=== PATIENT | female | born 1955 | race Caucasian/White ===

== ENCOUNTER → 2018-01-10 09:45 | Outpatient (CLI) | payer MEDICARE, SELFPAY ==
--- NOTE | 2018-01-10 | DI.MG.S_ITS ---
BILATERAL DIGITAL SCREENING MAMMOGRAM 3D/2D WITH CAD WITH AUGMENTATION: 01/10/2018 Comparison is made to exam dated: 11/08/2006 mammogram - [facility]. There are scattered fibroglandular elements in both breasts. Current study was also evaluated with a Computer Aided Detection (CAD) system. Bilateral breast implants are intact. No significant masses, calcifications, or other findings are seen in either breast. There has been no significant interval change. IMPRESSION: NEGATIVE There is no mammographic evidence of malignancy. A 1 year screening mammogram is recommended. This exam was interpreted at Station ID: [id number]. NOTE: For mammograms, a report in lay terms will be sent to the patient. Approximately 15% of breast malignancies will not be visualized mammographically. In the management of a palpable breast mass, a negative mammogram must not discourage biopsy of a clinically suspicious lesion. Electronically Signed By: Meet fontenot/loyda:01/10/2018 16:52:59 letter sent: Normal Exam ACR BI-RADS Category 1: Negative 3341F
== END ==
PROVIDERS: PCP Student in an Organized Health Care Education/Training Program; Visit Provider Family Medicine
DX: Z12.31 Encounter for screening mammogram for malignant neoplasm of breast (principal)
CPT/HCPCS: 77063; 77067

== ENCOUNTER → 2018-11-14 12:05 | Outpatient (CLI) | payer MEDICARE, SELFPAY ==
[2018-11-16 17:34] LABS: Fecal Immunochemical Test NOT DETECTED (NOT DETECTED)
== END ==
PROVIDERS: PCP Student in an Organized Health Care Education/Training Program; Visit Provider Student in an Organized Health Care Education/Training Program
DX: Z12.11 Encounter for screening for malignant neoplasm of colon (principal)
CPT/HCPCS: 82274

== ENCOUNTER → 2018-12-12 08:25 | Outpatient (CLI) | payer MEDICARE, SELFPAY ==
[2018-12-12 10:10] LABS: Blood Urea Nitrogen 9 mg/dL (7-17); Calcium 10.2 mg/dL (8.4-10.2); Carbon Dioxide 30 mmol/L (22-32); Chloride 100 mmol/L (98-107); Cholesterol 198 mg/dL (140-199); Estimated Glomerular Filt Rate > 60.0 mL/min (>60); Glucose 90 mg/dL (80-110); HDL Cholesterol 51 mg/dL (40-60); HEMOLYSIS < 15 (0-50); LDL Cholesterol Calculated 120 mg/dL (<100); Sodium 139 mmol/L (137-145); Triglycerides 135 mg/dL (35-150)
== END ==
PROVIDERS: PCP Student in an Organized Health Care Education/Training Program; Visit Provider Student in an Organized Health Care Education/Training Program
DX: I10 Essential (primary) hypertension (principal); E78.00 Pure hypercholesterolemia, unspecified
CPT/HCPCS: 36415; 80048; 80061

== ENCOUNTER → 2019-11-21 15:28 | Outpatient (CLI) | payer MEDICARE, SELFPAY ==
--- NOTE | 2019-11-21 16:05 | DI.MG.S_ITS ---
Patient Name: ELENA SAMANIEGO date: 1955 Sex: F Attending Physician: Lucy Indications: Date: 11/21/2019 15:32 At the request of: ANGEL BOUCHER Procedure: MM screening mammo implant BI BILATERAL DIGITAL SCREENING MAMMOGRAM 3D/2D WITH CAD WITH AUGMENTATION: 11/21/2019 CLINICAL: Routine screening. Comparison is made to exams dated: 01/10/2018 mammogram - [facility] and 11/08/[address] - [facility]. There are scattered fibroglandular elements in both breasts. Current study was also evaluated with a Computer Aided Detection (CAD) system. No significant masses, calcifications, or other findings are seen in either breast. IMPRESSION: INCOMPLETE: NEEDS ADDITIONAL IMAGING EVALUATION The left implant is intact and has a stable appearance. The right implant has calcifications of the capsule and concern for rupture of silicone breast implant. A breast MRI is recommended for further evaluation of the right implant if there are also clinical concerns for implant rupture. Otherwise, no mammographic evidence for malignancy. This exam was interpreted at Station ID: [id number]. NOTE: For mammograms, a report in lay terms will be sent to the patient. Approximately 15% of breast malignancies will not be visualized mammographically. In the management of a palpable breast mass, a negative mammogram must not discourage biopsy of a clinically suspicious lesion. Electronically Signed By: Mak Ordoñez M.D. aty/:11/21/2019 17:27:56 Continued Report - Page 2 of 2 Patient Name: ELENA SAMANIEGO date: 1955 Sex: F Attending Physician: Lucy Indications: Date: 11/21/2019 15:32 At the request of: ANGEL BOUCHER Procedure: MM screening mammo implant BI letter sent: Need MRI ACR BI-RADS Category 0: Incomplete 3340F
== END ==
PROVIDERS: PCP Student in an Organized Health Care Education/Training Program; Referring Provider Student in an Organized Health Care Education/Training Program; Visit Provider Student in an Organized Health Care Education/Training Program
DX: Z12.31 Encounter for screening mammogram for malignant neoplasm of breast (principal)
CPT/HCPCS: 77063; 77067

== ENCOUNTER → 2019-12-03 13:26 | Outpatient (ROUT) | payer MEDICARE, SELFPAY ==
[2019-12-04 13:36] LABS: Fecal Immunochemical Test Negative (Negative)
== END ==
PROVIDERS: PCP Student in an Organized Health Care Education/Training Program; Visit Provider Student in an Organized Health Care Education/Training Program
DX: Z12.11 Encounter for screening for malignant neoplasm of colon (principal)
CPT/HCPCS: 82274

== ENCOUNTER → 2020-09-17 09:58 | Outpatient (CLI) | payer MEDICARE, SELFPAY ==
--- NOTE | 2020-09-17 | DI.MG.S_ITS ---
BILATERAL DIGITAL SCREENING MAMMOGRAM 3D/2D WITH CAD WITH AUGMENTATION: 09/17/2020 CLINICAL: Routine screening. Comparison is made to exams dated: 11/21/2019 mammogram, 01/10/2018 mammogram - [facility], and 11/08/2006 mammogram - [facility]. There are scattered fibroglandular elements in both breasts. Current study was also evaluated with a Computer Aided Detection (CAD) system. No significant masses, calcifications, or other findings are seen in either breast. IMPRESSION: BENIGN The left implant has a stable appearance with stable contour and calcifications of the capsule. The right implant has calcification of the capsule. The right implant again shows evidence for extracapsular rupture. Consider further evaluation with breast MRI if there are clinical concerns. There is no mammographic evidence of malignancy. A 1 year screening mammogram is recommended. This exam was interpreted at Station ID: [id number]. NOTE: For mammograms, a report in lay terms will be sent to the patient. Approximately 15% of breast malignancies will not be visualized mammographically. In the management of a palpable breast mass, a negative mammogram must not discourage biopsy of a clinically suspicious lesion. Electronically Signed By: Mak Ordoñez M.D. aty/:09/17/2020 10:44:09 letter sent: Normal Exam ACR BI-RADS Category 2: Benign Finding(s) 3342F
--- NOTE | 2020-09-17 10:00 | DI.MRI.S_ITS ---
BREAST MRI OF BOTH BREASTS: 09/17/2020 CLINICAL: Leakage of breast prostehesis and implant. INDICATIONS: Possible right breast implant rupture. TECHNIQUE: The patient was placed prone in a dedicated breast imaging coil. Axial bilateral STIR, axial and sagittal STIR with water saturation (silicone selective), sagittal T2 fast spin echo with fat saturation, and coronal T2 fast spin echo without fat saturation sequences were acquired. COMPARISON: None. FINDINGS: Image quality: Excellent. Right breast: The silicone right breast implant is ruptured with multiple large lobular areas of extracapsular silicone, primarily superior to the breast implant. The right breast demonstrates no abnormal focus or mass. No axillary or internal mammary chain adenopathy. Left breast: The silicone left breast implant is ruptured with extravasation of silicone outside of the fibrous capsule medially. The left breast demonstrates no abnormal focus or mass. No axillary or internal mammary chain adenopathy. IMPRESSION: BENIGN Bilateral extracapsular silicone breast implant rupture. This exam was interpreted at Station ID: [id number]. Electronically Signed By: Iván Kahn acr/:09/17/2020 12:33:07 Entry: - 09/18/2020 07:01:34 ACR BI-RADS Category 2: Benign Finding(s) 3342F
== END ==
PROVIDERS: PCP Student in an Organized Health Care Education/Training Program; Referring Provider Student in an Organized Health Care Education/Training Program; Visit Provider Student in an Organized Health Care Education/Training Program
DX: Z12.31 Encounter for screening mammogram for malignant neoplasm of breast (principal); T85.43XA Leakage of breast prosthesis and implant, initial encounter
CPT/HCPCS: 77063; 77067; 77047

== ENCOUNTER 2021-01-19 13:25 | Inpatient (IN) | payer MEDICARE, MEDICAID, SELFPAY ==
[2021-01-19] VITALS (11 sets, daily range): BP systolic 171–190; BP diastolic 82–111; PULSE 76–99; RESP 16–24; TEMP 36.4–38.7; O2SAT 93–96; BMI 21.6
[2021-01-19 13:56] LABS: Add Manual Diff / Slide Review NO; Basophils Absolute Auto 0 /uL (0-100); Basophils Percent Auto 0.6 % (0-2); Eosinophils Absolute Auto 0 /uL (0-450); Hematocrit 44.1 % (36-46); Hemoglobin 15.5 g/dL (12.0-16.0); Lymphocytes Absolute Auto 800 /uL (1100-4500); Lymphocytes Percent Auto 10.2 % (25-40); Mean Corpuscular Hemoglobin 33.6 PG (26-34); Mean Corpuscular Volume 95.8 fL (80-100); Monocytes Absolute Auto 600 /uL (0-900); Monocytes Percent Auto 8.1 % (3-14); Neutrophils Absolute Auto 6000 /uL (1500-7000); Neutrophils Percent Auto 81.1 % (50-75); Platelet Count 258 X10^3/uL (150-400); Red Blood Cell Count 4.61 X10^6/uL (4.0-5.2); Red Cell Distribution Width 16.2 % (11.6-14.8); White Blood Cell Count 7.4 X10^3/uL (4.5-11.0)
--- NOTE | 2021-01-19 13:59 | ED.ALCOHOL ---
HPI - Alcohol General Chief Complaint: Toxicology Problem Stated Complaint: Needs medical detox- alcohol/opiates Time Seen by Provider: 01/19/21 13:49 Source: patient Mode of arrival: Ambulatory History of Present Illness HPI narrative: The patient is here due to alcohol intoxication. She underwent detox 11 years ago, there was a prolonged hospital associated with the events that time. She has been sober for 11 years, she started drinking again about 2 months ago. She is drinking about 1/5 of alcohol daily. She is also taking Percocet for bilateral knee pain prescribed by her PCM. She is providing her medical history with assistance of her sister. She denies headache, sore throat fever. She denies chest pain cough or dyspnea. She has been vomiting. She has had no hematemesis. She has no history of chronic GI problems. She has no history of liver disease or pancreatitis. She has no back pain. She has no history of GI bleeding. She has no obvious history of seizures. She is on medications for hypertension, she is compliant with medications. She is eating. She has no particular reason why she started drinking again. Related Data Previous Rx's Medication Instructions Recorded amlodipine 5 mg tablet 5 mg PO BID #180 tab 12/17/20 hydrochlorothiazide 25 mg tablet 25 mg PO DAILY #90 tab 12/17/20 lisinopril 40 mg tablet (Zestril) 40 mg PO QDAY #90 tab 12/17/20 oxycodone-acetaminophen 5 mg-325 1 tab PO TIDP PRN #90 tab 01/15/21 mg tablet lorazepam 0.5 mg tablet (Ativan) 0.5 mg PO BID PRN #42 tab 01/18/21 venlafaxine 75 mg capsule,extended 75 mg PO DAILY #90 cap 01/18/21 release 24 hr Allergies Allergy/AdvReac Type Severity Reaction Status Date / Time No Known Drug Allergies Allergy Unverified 08/12/20 14:07 Review of Systems Constitutional Constitutional: Reports as per HPI, Denies chills, Denies fatigue, Denies fever(s), Denies headache(s) and Denies weakness Eyes Eyes: Denies change in vision ENT Ears, Nose, Mouth, and Throat: Denies headache(s), Denies nose pain and Denies sore throat Cardiovascular Cardiovascular: Denies chest pain, Denies syncope, Denies rapid heart rate, Denies pedal edema and Denies dyspnea Respiratory Respiratory: Denies chest congestion, Denies cough and Denies dyspnea Gastrointestinal Gastrointestinal: Denies change in stool character, Denies constipation, Denies diarrhea, Reports nausea and Reports vomiting Genitourinary Genitourinary: Denies dysuria Musculoskeletal Musculoskeletal: Denies arthralgias, Denies back pain and Denies numbness Integumentary/Breasts Skin/Breast: Denies rash and Denies sores Neurologic Neurologic: Denies confusion, Denies syncope, Denies headache(s), Denies memory loss, Denies numbness and Denies weakness Psychiatric Psychiatric: Reports anxiety, Denies confusion and Denies memory loss Endocrine Endocrine: Denies fatigue Hematologic/Lymphatic On Anticoagulants: No Patient History Medical History Agoraphobia (Unknown) Allergic rhinitis (Unknown) Allergic rhinitis due to pollen (06/01/15) Anxiety (Unknown) Chronic pain of left knee (06/19/17) Chronic sinusitis (Unknown) Depression (03/19/15) Depression (Unknown) Essential hypertension (03/19/15) GERD (gastroesophageal reflux disease) (Unknown) Herpes (Unknown) History of ETOH abuse (~2011) Hypertension (Unknown) Knee pain, bilateral (Unknown) Neck pain (Unknown) Osteoarthritis (Unknown) PTSD (post-traumatic stress disorder) (Unknown) Pure hypercholesterolemia (03/24/17) Spinal stenosis (Unknown) Tension headache (Unknown) Uncomplicated opioid dependence Surgical History H/O LEEP (Unknown) History of repair of hiatal hernia (Unknown) Hx of bilateral breast implants (Unknown) Hx of cervical discectomy (12/2013) Hx of section (Unknown) Family History Sister Cancer Grandmother Diabetes mellitus Social History Smoking Status: Current every day smoker Smoking Status: Current every day smoker tobacco type: cigarettes alcohol intake frequency: 3 or more drinks per day Alcohol type: hard liquor Substance Use Type: opiates and prescription drug Exam Initial Vital Signs Initial Vital Signs: Vital Signs Temperature 97.5 F L 01/19/21 13:30 Pulse Rate 96 H 01/19/21 13:30 Respiratory Rate 24 01/19/21 13:30 Blood Pressure 179/111 H 01/19/21 13:30 Pulse Oximetry 95 01/19/21 13:30 Const General: cooperative, No in distress, anxious and intoxicated appearing Nutritional Appearance: average body habitus Limitations: mental status not altered [facility] Head: normal to inspection, normocephalic and atraumatic Face and sinus: normal facial exam and sinuses tender Mouth: oral mucosae normal Throat: posterior oropharynx normal Eyes General: appearance normal, both eyes and all related structures Conjunctivae: conjunctivae normal Sclera: sclerae normal Cornea: corneas normal Pupils: PERRL EOM: EOM intact bilaterally and No nystagmus Neck Neck: supple, No tender and No JVD Thyroid: thyroid normal Chest Chest: No tenderness Resp Auscultation: clear to auscultation bilaterally Cardio Rate: regular rate Rhythm: regular rhythm Heart Sounds: S1 normal, S2 normal, no murmurs and no rubs GI Other: Upper abdominal tenderness. No distension. No guarding rebound normal bowel sounds. No masses. Back/Spine/Pelvis Back: No CVA tenderness Skin General: no rashes or lesions noted Neuro General: patient alert, patient awake, patient oriented x3 and no focal motor deficits Cranial Nerves: No nystagmus Cognition: normal cognition Gait: normal gait Motor: muscle tone normal throughout Sensory Exam: no sensory deficits noted Extrem General: normal to inspection, full ROM, no pedal edema and no calf tenderness Psych Speech and Movement: restless and slowed movement Mood: anxious mood Thought Content: suicidality Course Course Course Narrative: The patient has received IV fluids. Her elevated alcohol is noted. She developed tremor. Ativan was given. The case was discussed with the hospitalist, . She will be admitted for medical detox. Orders Ordered: ED Orders 01/19/21 13:48 Acetaminophen Stat Complete Blood Count AUTO DIFF Stat Comprehensive Metabolic Panel Stat Ethanol (ETOH) Stat Free T4, Direct Thyroxine Stat Salicylate Stat Thyroid Stimulating Hormone Stat 01/19/21 14:37 Consult to DUMP TRUCK DRIVER - Transformation Coach Stat 01/19/21 15:11 COVID19 - ADMIT (SOLUTION MIXER swab/PCR) Stat 01/19/21 16:04 Urinalysis and Microscopic Stat Urine Drug Screen, Rapid Stat Acetaminophen (Acetaminophen 325 Mg Tablet) 650 mg PO Q6HR PRN PRN Reason: Fever/Mild Pain (1-3) Enoxaparin Sodium (Enoxaparin 40 Mg/0.4 Ml Syringe) 40 mg SUBCUT DAILY [facility] Folic Acid (Folic Acid 1 Mg Tablet) 1 mg PO DAILY [facility] Thiamine HCl 100 mg/ Sodium (Chloride) 50 mls @ 200 mls/hr IV DAILY [facility] Lorazepam (Lorazepam 2 Mg/Ml Inj) 0 mg IV CIWAPRN PRN; Protocol PRN Reason: Alcohol Withdrawal Lorazepam (Lorazepam 1 Mg Tablet) 0 mg PO CIWAPRN PRN; Protocol PRN Reason: Alcohol Withdrawal Multivitamins (Multivitamin 1 Tablet) 1 tab PO DAILY [facility] Ondansetron HCl (Ondansetron 4 Mg/2 Ml Inj) 4 mg IV Q8HR PRN PRN Reason: Nausea And Vomiting Discontinued Medications Sodium Chloride (Normal Saline 0.9%) 1,000 mls @ 1,000 mls/hr IV BOLUS ONE Stop: 01/19/21 14:35 Last Infusion: 01/19/21 15:56 Dose: 0 mls/hr Documented by: Admin: 01/19/21 14:05 Dose: 1,000 mls/hr Documented by: EMANUEL Sodium Chloride (Normal Saline 0.9%) 1,000 mls @ 1,000 mls/hr IV BOLUS ONE Stop: 01/19/21 14:57 Last Infusion: 01/19/21 17:44 Dose: 0 mls/hr Documented by: Admin: 01/19/21 15:55 Dose: 1,000 mls/hr Documented by: EMANUEL POTASSIUM CHLORIDE IN WATER (Potassium Cl 10 Meq/100 Ml Shirley) 10 meq in 100 mls @ 100 mls/hr IV Q1H FELIZ Stop: 01/19/21 17:44 Last Infusion: 01/19/21 17:45 Dose: 0 mls/hr Documented by: Admin: 01/19/21 17:20 Dose: 100 mls/hr Documented by: Infusion: 01/19/21 17:19 Dose: 0 mls/hr Documented by: Admin: 01/19/21 15:56 Dose: 100 mls/hr Documented by: EMANUEL Lorazepam (Lorazepam 2 Mg/Ml Inj) 1 mg IV NOW ONE Stop: 01/19/21 15:00 Last Admin: 01/19/21 15:04 Dose: 1 mg Documented by: JANINE Lorazepam (Lorazepam 2 Mg/Ml Inj) 2 mg IV NOW ONE Stop: 01/19/21 16:59 Last Admin: 01/19/21 17:20 Dose: 2 mg Documented by: EMANUEL Ondansetron HCl (Ondansetron 4 Mg/2 Ml Inj) 4 mg IV NOW ONE Stop: 01/19/21 13:37 Last Admin: 01/19/21 14:05 Dose: 4 mg Documented by: EMANUEL Vital Signs Vital signs: Vital Signs - 8 hr 01/19/21 13:30 01/19/21 14:04 01/19/21 14:30 Temperature 97.5 F L Pulse Rate 96 H 81 77 Respiratory Rate 24 18 18 Blood Pressure 179/111 H 171/82 H Pulse Oximetry 95 93 95 01/19/21 15:00 01/19/21 15:30 Temperature Pulse Rate 85 80 Respiratory Rate 23 21 Blood Pressure 177/82 H 185/94 H Pulse Oximetry 96 95 MDM - Alcohol Lab Data Result diagrams: 01/19/21 13:48 01/19/21 13:48 Labs: Lab Results 01/19/21 01/19/21 01/19/21 Range/Units 13:48 13:48 13:48 WBC 7.4 (4.5-11.0) X10^3/uL RBC 4.61 (4.0-5.2) X10^6/uL Hgb 15.5 (12.0-16.0) g/dL Hct 44.1 (36-46) % MCV 95.8 (80-100) fL MCH 33.6 (26-34) PG MCHC 35.0 (30-36) % RDW 16.2 H (11.6-14.8) % Plt Count 258 (150-400) X10^3/uL Neut % (Auto) 81.1 H (50-75) % Lymph % (Auto) 10.2 L (25-40) % [place] % (Auto) 8.1 (3-14) % Eos % (Auto) 0.0 L (2-4) % Baso % (Auto) 0.6 (0-2) % Neut # (Auto) 6000 (6203-7059) /uL Lymph # (Auto) 800 L (7962-5036) /uL [place] # (Auto) 600 (0-900) /uL Eos # (Auto) 0 (0-450) /uL Baso # (Auto) 0 (0-100) /uL Sodium 133 L (137-145) mmol/L Potassium 3.0 L (3.4-5.1) mmol/L Chloride 93 L (98-107) mmol/L Carbon Dioxide 25 (22-32) mmol/L BUN 8 (7-17) mg/dL Creatinine 0.45 L (0.52-1.04) mg/dL Estimated GFR > 60.0 (>60) mL/min BUN/Creatinine Ratio 17.8 (6-22) Glucose 108 (80-110) mg/dL Calcium 9.0 (8.4-10.2) mg/dL Total Bilirubin 1.1 (0.2-1.3) mg/dL AST 78 H (14-36) IU/L ALT 27 (<35) IU/L Alkaline Phosphatase 104 (38-126) U/L Total Protein 7.4 (6.3-8.2) g/dL Albumin 4.5 (3.5-5.0) g/dL Globulin 2.9 (1.7-4.1) g/dL Albumin/Globulin Ratio 1.6 (1.0-2.8) TSH 0.151 L (0.47-4.68) uIU/mL Free T4 0.73 L (0.78-2.19) ng/dL Salicylates < 1.0 (<20) mg/dL Acetaminophen 24 (10-30) ug/mL Ethyl Alcohol 221 H ( - 10) mg/dL SARS-CoV-2 (PCR) (Negative) 01/19/21 Range/Units 15:11 WBC (4.5-11.0) X10^3/uL RBC (4.0-5.2) X10^6/uL Hgb (12.0-16.0) g/dL Hct (36-46) % MCV (80-100) fL MCH (26-34) PG MCHC (30-36) % RDW (11.6-14.8) % Plt Count (150-400) X10^3/uL Neut % (Auto) (50-75) % Lymph % (Auto) (25-40) % [place] % (Auto) (3-14) % Eos % (Auto) (2-4) % Baso % (Auto) (0-2) % Neut # (Auto) (9077-1362) /uL Lymph # (Auto) (3579-5479) /uL [place] # (Auto) (0-900) /uL Eos # (Auto) (0-450) /uL Baso # (Auto) (0-100) /uL Sodium (137-145) mmol/L Potassium (3.4-5.1) mmol/L Chloride (98-107) mmol/L Carbon Dioxide (22-32) mmol/L BUN (7-17) mg/dL Creatinine (0.52-1.04) mg/dL Estimated GFR (>60) mL/min BUN/Creatinine Ratio (6-22) Glucose (80-110) mg/dL Calcium (8.4-10.2) mg/dL Total Bilirubin (0.2-1.3) mg/dL AST (14-36) IU/L ALT (<35) IU/L Alkaline Phosphatase (38-126) U/L Total Protein (6.3-8.2) g/dL Albumin (3.5-5.0) g/dL Globulin (1.7-4.1) g/dL Albumin/Globulin Ratio (1.0-2.8) TSH (0.47-4.68) uIU/mL Free T4 (0.78-2.19) ng/dL Salicylates (<20) mg/dL Acetaminophen (10-30) ug/mL Ethyl Alcohol ( - 10) mg/dL SARS-CoV-2 (PCR) Negative (Negative) Critical Care Time Critical Care Time Critical Care Time: Yes Total Critical Care Time: 30 Attestation: Critical care time included the initial assessment of the patient. Time included review of past medical records, labs, and EKG data. Medical decisions were made. The situation was discussed with the patient as well as the hospitalist. Discharge Plan Departure Patient Disposition: Admitted As Inpatient Clinical Impression: Alcohol use disorder, severe, dependence, Opioid dependence Admit Date/Time: 01/19/21 15:53 Admit Provider: Martin Watts
[2021-01-19] MEDS: SODIUM CHLORIDE 0.9% 1,000 ML 1000 ML IV ×2 (14:05→15:55)
[2021-01-19] MEDS: ONDANSETRON 4 MG/2 ML INJ IV (14:05)
[2021-01-19 14:08] LABS: Acetaminophen 24 ug/mL (10-30); Alanine Aminotransferase 27 IU/L (<35); Albumin 4.5 g/dL (3.5-5.0); Albumin Globulin Ratio 1.6 (1.0-2.8); Alkaline Phosphatase 104 U/L (38-126); Aspartate Aminotransferase 78 IU/L (14-36); BUN Creatinine Ratio 17.8 (6-22); Bilirubin Total 1.1 mg/dL (0.2-1.3); Blood Urea Nitrogen 8 mg/dL (7-17); Carbon Dioxide 25 mmol/L (22-32); Chloride 93 mmol/L (98-107); Estimated Glomerular Filt Rate > 60.0 mL/min (>60); Ethanol (ETOH) 221 mg/dL; Globulin 2.9 g/dL (1.7-4.1); Glucose 108 mg/dL (80-110); HEMOLYSIS 31 (0-50); Salicylate < 1.0 mg/dL (<20); Sodium 133 mmol/L (137-145); Total Protein 7.4 g/dL (6.3-8.2)
[2021-01-19 14:31] LABS: Free T4, Direct Thyroxine 0.73 ng/dL (0.78-2.19)
[2021-01-19 14:45] LABS: Thyroid Stimulating Hormone 0.151 uIU/mL (0.47-4.68)
[2021-01-19] MEDS: LORazepam 2 MG/ML INJ 1 MG IV (15:04)
[2021-01-19] MEDS: POTASSIUM CHLORIDE IN WATER 10 MEQ/100 ML PIGGYBACK 100 MEQ IV ×2 (15:56→17:20)
[2021-01-19 16:14] LABS: COVID19 - ADMIT (NP swab/PCR) Negative (Negative)
[2021-01-19 16:18] LABS: Appearance Urine UA CLEAR; Bilirubin Urine UA NEGATIVE (NEGATIVE); Color Urine UA YELLOW; Glucose Urine UA NEGATIVE (Negative); Ketones Urine UA TRACE (NEGATIVE); Leukocyte Esterase Urine UA NEGATIVE (NEGATIVE); Nitrite Urine UA NEGATIVE (Negative); Occult Blood Urine UA 3+ (Negative); Protein Urine UA 2+ (Negative); Urobilinogen Urine UA 0.2 E.U./dL (0.2)
[2021-01-19 16:20] LABS: pH Urine UA 7.5 (4.5-8.0)
[2021-01-19 16:22] LABS: UR Morphine/Opiate cutoff 300 Negative (Negative); Ur Creatinine Normal (Normal); Ur Specific Gravity Normal (Normal); Urine Amphetamines Negative (Negative); Urine Barbiturates Negative (Negative); Urine Benzodiazepines Negative (Negative); Urine Cocaine Negative (Negative); Urine MDMA Negative (Negative); Urine Methadone Negative (Negative); Urine Methamphetamines Negative (Negative); Urine Oxycodone Positive (Negative); Urine Phencyclidine Negative (Negative); Urine Tetrahydrocannabinol Negative (Negative); Urine Tricyclic Antidepressant Negative (Negative); Urine pH Normal (Normal)
--- NOTE | 2021-01-19 16:34 | CM.SWNOTE ---
BULB GROWER Assessment BULB GROWER - Speeder Hand Assessment ) BULB GROWER/Speeder Hand Assessment Time Spent with Patient Start date 01/19/21 Visit Start Time 15:40 End date 01/19/21 Visit End Time 15:50 Total time Care Management spent on 10 patient visit-in minutes Substance Abuse Screening Include Onset, Duration, Intensity Presenting Problem Patient presents to the ED with concern for her recent ETOH relapse. Patient only endorses ETOH relapse to BULB GROWER but endorses Opiate detox to RN during triage. Precipitating Event(s) Patient denies any triggers. Patient was clean and sober for 11 years and endorses recent relapse. Patient Strengths Patient is seeking detox. Current Behavioral Health Provider(s) None reported Include Facility, Provider, Ph. # Family Hx of Behavioral Abuse None reported Rehab Facilities? ((Date(s), Location(s) Patient endorses hx of ) inpatient/detox at [facility] 11 years ago. History of Withdrawal? Seizures? Patient endorses withdrawals but falls asleep and does not answer BULB GROWER's questions. Nurse endorses she recently was provided an Ativan. RN endorses that patient's CIWA withdrawal symptoms are anxiety, itching, mild auditory and visual disturbances, slight agitation , and moderate muscle tremors. Longest Period of Sobriety 11 years Psychosocial information & Support Patient is 66 y/o female who Systems resides in [place], [place]. Patient endorses her friends Hayde and daughter as supports that live locally. School/Work None reported Legal Concerns Legal Matters - Outstanding Issues None reported Mental Status Orientation (Person/Place/Time) A/Ox4 Stated Mood tired Affect (Congruent with Mood?) Flat, congruent with mood Thought Content - Specify/Describe None reported Obsessions, Delusions, Hallucinations Thought Processes (Mwhncms-Skjliljx-Kjhj logical Ecfcwqwc-Umvntsju-Tcigwwbepc- Izmurzqngjcxwi-Ndvfoct-Uwxsfqhcinuj- Thought Blocking) Speech (Jowrab-Zkot-Cooauwe-Rapid-Soft- slow, soft Loud-Pressured) Motor (Yxfegj-Yweotzkup-Vioj-Other) slow, patient resting. Not formally assessed Insight (Pswk-Tqdp-Fdak/Limited) fair/limited Judgement (Ledn-Rdst-Qskm/Limited) fair/limited Impulse Control (Adequate-Impaired) adequate Memory (Dppokbfah-Bgcuus-Ydpbte, intact, not formally assessed Impaired-Intact) Concentration (Intact-Impaired) fairly intact Attention (Intact-Impaired) fairly intact, patient falling asleep after Ativan effects impact patient. Behavior (Appropriate-Inappropriate) appropriate Additional Comment Patient is calm and communicative. Risk Assessment Suicidal Ideation (Plan) No Homicidal Ideation (Plan) No Comment None reported. Patient denies HI and SI in triage. Intervention Intervention BULB GROWER receives consult and enters room to meet with patient. Patient endorses that she is seeking detox. Patient endorses that she relapsed after 11 years of sobriety. Patient endorses she has been drinking a pint of vodka a day . Patient denies hx of AA meetings, [facility] outpatient or [facility] outpatient engagement. Patient does not endorses interest in outpatient providers at this time. Patient states one step at a time. At this time patient was not able to communicate with patient regarding planning for the future in regards to addressing ETOH use. It is the opinion of this BULB GROWER that patient would benefit from detox to address patient 's recent detox. Per aerospace engineer officer armament and ED provider Dr. Alvarado patient is to be admitted for medical ETOH detox and decreased Sodium levels. Plan RA Plan Patient to be admitted to acute care, DCP to f/u with patient regarding DCP for outpatient follow up. EVERETT Cartwright
[2021-01-19 16:36] LABS: Bacteria Urine Few (2-10); Culture Indicated Urine Cult Not Indicated; RBC Urine 10-30/HPF (0-5/HPF); Squamous Epithelial Cell Urine 1-5 /HPF (0-5/HPF); WBC Urine None Seen (0-5/HPF)
[2021-01-19] MEDS: LORazepam 2 MG/ML INJ IV ×4 (17:20→22:48)
--- NOTE | 2021-01-19 18:56 | P.HP_ITS ---
History of Present Illness History of Present Illness Date Patient Seen: 01/19/21 Time Patient Seen: 17:00 Chief complaint: Needs medical detox- alcohol/opiates Narrative: Ms. Pineda is a 66W with PMH alcohol abuse, anxiety, HTN, chronic pain who comes in for EtOH detox. She underwent detox 11 years ago, and says she has been sober since. For the last two months she has been drink 1/5 of hard alcohol daily. She also takes percocet for pain. She had her last drink earlier today, she has been vomiting, anxious, tremulous. She had no blood in vomit. No history of seizures. In the ED workup was done, vitals notable for heart rate in 90s, respiratory rate in 20s, blood pressure 170s/110s. Labs notable for normal CBC, Na 133, K 3.0, creatinine 0.45, AST 78. EtOH 221. She [facility] and admitted for further treatment. Patient History Medical History Agoraphobia (Unknown) Allergic rhinitis (Unknown) Allergic rhinitis due to pollen (06/01/15) Anxiety (Unknown) Chronic pain of left knee (06/19/17) Chronic sinusitis (Unknown) Depression (03/19/15) Depression (Unknown) Essential hypertension (03/19/15) GERD (gastroesophageal reflux disease) (Unknown) Herpes (Unknown) History of ETOH abuse (~2011) Hypertension (Unknown) Knee pain, bilateral (Unknown) Neck pain (Unknown) Osteoarthritis (Unknown) PTSD (post-traumatic stress disorder) (Unknown) Pure hypercholesterolemia (03/24/17) Spinal stenosis (Unknown) Tension headache (Unknown) Uncomplicated opioid dependence Surgical History H/O LEEP (Unknown) History of repair of hiatal hernia (Unknown) Hx of bilateral breast implants (Unknown) Hx of cervical discectomy (12/2013) Hx of section (Unknown) Family & Social History Family History Sister Cancer Grandmother Diabetes mellitus Social History: household members friend(s) Prior Living Arrangements House Safety & Behavioral: Feels Safe in Current Yes Environment Been Physically Hurt or No Threatened By a Person Suicidal Ideation Description None Suicide Plan Description No Plan Tobacco & Substance use: Tobacco type cigarettes Smoking Status Current every day smoker Smoking packs per day 0.5 alcohol intake current alcohol intake frequency 3 or more drinks per day Substance Use Type marijuana,opiates,prescription drug Meds Home Medications and Allergies Home Medications Medication Instructions Recorded Confirmed Type amlodipine 5 mg tablet 5 mg PO BID #180 tab 12/17/20 01/19/21 Rx hydrochlorothiazide 25 mg tablet 25 mg PO DAILY #90 tab 12/17/20 01/19/21 Rx lisinopril 40 mg tablet (Zestril) 40 mg PO QDAY #90 tab 12/17/20 01/19/21 Rx oxycodone-acetaminophen 5 mg-325 1 tab PO TIDP PRN #90 tab 01/15/21 01/19/21 Rx mg tablet lorazepam 0.5 mg tablet (Ativan) 0.5 mg PO BID PRN #42 tab 01/18/21 01/19/21 Rx venlafaxine 75 mg capsule,extended 75 mg PO DAILY #90 cap 01/18/21 01/19/21 Rx release 24 hr Allergies Allergy/AdvReac Type Severity Reaction Status Date / Time No Known Drug Allergies Allergy Unverified 08/12/20 14:07 Review of Systems Review of Systems Narrative: 14 systems reviewed and negative aside from what is noted in HPI Exam Vital Signs (past 8 hours): - 01/19/21 13:30 01/19/21 14:04 01/19/21 14:30 Temperature 97.5 F L Pulse Rate 96 H 81 77 Respiratory Rate 24 18 18 Blood Pressure 179/111 H 171/82 H Pulse Oximetry 95 93 95 01/19/21 15:00 01/19/21 15:30 01/19/21 16:00 Temperature Pulse Rate 85 80 79 Respiratory Rate 23 21 23 Blood Pressure 177/82 H 185/94 H 173/86 H Pulse Oximetry 96 95 95 01/19/21 16:57 Temperature Pulse Rate 76 Respiratory Rate 20 Blood Pressure 182/90 H Pulse Oximetry 93 Oxygen Delivery Method Room Air Oxygen Flow Rate 0 Narrative Exam Narrative: GEN: no acute distress HEENT: moist mucous membranes, PERRL NECK: trachea midline, no JVD CV: regular rate and rhythm PULM: clear bilaterally ABD: soft, nontender, nondistended, no organomegaly EXT: warm and well perfused, no edema SKIN: flushed skin in face and chest NEURO: tremulous, anxious, diaphoresis Objective Labs Result Diagrams: 01/19/21 13:48 01/19/21 13:48 Labs: Laboratory Results - last 24 hr 01/19/21 01/19/21 01/19/21 13:48 13:48 13:48 WBC 7.4 RBC 4.61 Hgb 15.5 Hct 44.1 MCV 95.8 MCH 33.6 MCHC 35.0 RDW 16.2 H Plt Count 258 Neut % (Auto) 81.1 H Lymph % (Auto) 10.2 L [place] % (Auto) 8.1 Eos % (Auto) 0.0 L Baso % (Auto) 0.6 Neut # (Auto) 6000 Lymph # (Auto) 800 L [place] # (Auto) 600 Eos # (Auto) 0 Baso # (Auto) 0 Sodium 133 L Potassium 3.0 L Chloride 93 L Carbon Dioxide 25 BUN 8 Creatinine 0.45 L Estimated GFR > 60.0 BUN/Creatinine Ratio 17.8 Glucose 108 Calcium 9.0 Total Bilirubin 1.1 AST 78 H ALT 27 Alkaline Phosphatase 104 Total Protein 7.4 Albumin 4.5 Globulin 2.9 Albumin/Globulin Ratio 1.6 TSH 0.151 L Free T4 0.73 L Urine Color Urine Appearance Urine pH Ur Specific [place] Urine Protein Urine Glucose (UA) Urine Ketones Urine Occult Blood Urine Nitrate Urine Bilirubin Urine Urobilinogen Ur Leukocyte Esterase Urine RBC Urine WBC Ur Squamous Epith Cells Urine Bacteria Ur Culture Indicated? Salicylates < 1.0 U Opiates 300ng/mL cut Ur Oxycodone Screen Urine Methadone Screen Acetaminophen 24 Ur Barbiturates Screen U Tricyclic Antidepress Ur Phencyclidine Scrn Ur Amphetamines Screen U Methamphetamines Scrn Ur MDMA Scrn (Ecstasy) U Benzodiazepines Scrn Urine Cocaine Screen U Marijuana (THC) Screen Ethyl Alcohol 221 H SARS-CoV-2 (PCR) 01/19/21 01/19/21 01/19/21 15:11 16:04 16:04 WBC RBC Hgb Hct MCV MCH MCHC RDW Plt Count Neut % (Auto) Lymph % (Auto) [place] % (Auto) Eos % (Auto) Baso % (Auto) Neut # (Auto) Lymph # (Auto) [place] # (Auto) Eos # (Auto) Baso # (Auto) Sodium Potassium Chloride Carbon Dioxide BUN Creatinine Estimated GFR BUN/Creatinine Ratio Glucose Calcium Total Bilirubin AST ALT Alkaline Phosphatase Total Protein Albumin Globulin Albumin/Globulin Ratio TSH Free T4 Urine Color Yellow Urine Appearance Clear Urine pH 7.5 Ur Specific [place] 1.010 Urine Protein 2+ H Urine Glucose (UA) Negative Urine Ketones Trace H Urine Occult Blood 3+ H Urine Nitrate Negative Urine Bilirubin Negative Urine Urobilinogen 0.2 Ur Leukocyte Esterase Negative Urine RBC 10-30/hpf H Urine WBC None seen Ur Squamous Epith Cells 1-5 /hpf Urine Bacteria Few (2-10) H Ur Culture Indicated? Cult not indicated Salicylates U Opiates 300ng/mL cut Negative Ur Oxycodone Screen Positive H Urine Methadone Screen Negative Acetaminophen Ur Barbiturates Screen Negative U Tricyclic Antidepress Negative Ur Phencyclidine Scrn Negative Ur Amphetamines Screen Negative U Methamphetamines Scrn Negative Ur MDMA Scrn (Ecstasy) Negative U Benzodiazepines Scrn Negative Urine Cocaine Screen Negative U Marijuana (THC) Screen Negative Ethyl Alcohol SARS-CoV-2 (PCR) Negative Assessment & Plan Assessment & Plan narrative: Ms. Pineda is a 66W with PMH chronic pain, alcohol a buse, hypertension who presents with tremulousness and anxiety consistent with alcohol withdrawa. 1. Alcohol withdrawal in setting of alcohol abuse -alcohol positive in 200s, but already withdrawing -given ativan in ED, so now phenobarb protocol -continue with ativan, ordered [facility] protocol -ordere for MVI, folate thiamine 2. HTN -continue home medications 3. Anxiety -ativan per [facility] protocol -continue venlafaxine 4. Chronic pain -continue percocet CODE: Full Proxy: Maranda Trujillo, friend I have utilized all available immediate resources to obtain, update, or review the patient's current medications. Time Spent With Patient Critical Care time: I spent a total of [] minutes of critical care time on this patient's care today; this time is exclusive of procedural time. Quality VTE Deep Vein Thrombosis/Pulmonary Embolism Present on Admission: No MIPS - Admit I confirm the patient?s Advance Care Plan is present, Code status is documented, Surrogate decision maker is in patient?s record [If Yes, STOP here]: Yes
--- NOTE | 2021-01-19 19:10 | PC.NURSE ---
Pt arrived via ED accompanied by RN. Pt aware she is in her room, follows commands, Settled to bed with seizure pads. Up once to BR. Sister here to visit.
--- NOTE | 2021-01-19 20:20 | DI.RAD.S_ITS ---
PROCEDURE: XR CHEST 1V INDICATIONS: fever TECHNIQUE: One view of the chest was acquired. COMPARISON: None. FINDINGS: Surgical changes and devices: None. Lungs and pleura: There are indistinct right suprahilar and left peripheral ground-glass opacities. No pleural effusions or pneumothorax. Mediastinum: Mediastinal contours appear normal. Heart size is normal. Bones and chest wall: No suspicious bony lesions. Bilateral peripherally calcified breast implants are noted. IMPRESSION: 1. Bilateral indistinct ground-glass opacities are nonspecific but may reflect atypical pneumonia. Dictated by: Meet Henderson M.D. on 01/19/2021 at 22:35 Approved by: Meet Henderson M.D. on 01/19/2021 at 22:37
[2021-01-19] MEDS: AMLODIPINE 5 MG TABLET PO (21:33)
[2021-01-20] VITALS (21 sets, daily range): BP systolic 141–183; BP diastolic 70–102; PULSE 67–99; RESP 16–20; TEMP 36.7–37.8; O2SAT 95–98
[2021-01-20] MEDS: LORazepam 2 MG/ML INJ IV ×5 (00:13→21:13)
[2021-01-20] MEDS: FAMOTIDINE 20 MG TABLET PO ×3 (01:17→21:13)
[2021-01-20 07:15] LABS: Add Manual Diff / Slide Review NO; Basophils Absolute Auto 0 /uL (0-100); Basophils Percent Auto 0.6 % (0-2); Eosinophils Absolute Auto 0 /uL (0-450); Eosinophils Percent Auto 0.1 % (2-4); Hematocrit 44.1 % (36-46); Hemoglobin 15.3 g/dL (12.0-16.0); Lymphocytes Absolute Auto 1300 /uL (1100-4500); Lymphocytes Percent Auto 20.7 % (25-40); Mean Corpuscular HGB Conc 34.7 % (30-36); Mean Corpuscular Hemoglobin 33.5 PG (26-34); Mean Corpuscular Volume 96.6 fL (80-100); Monocytes Absolute Auto 600 /uL (0-900); Monocytes Percent Auto 9.3 % (3-14); Neutrophils Absolute Auto 4400 /uL (1500-7000); Neutrophils Percent Auto 69.3 % (50-75); Platelet Count 207 X10^3/uL (150-400); Red Blood Cell Count 4.56 X10^6/uL (4.0-5.2); Red Cell Distribution Width 16.4 % (11.6-14.8); White Blood Cell Count 6.4 X10^3/uL (4.5-11.0)
[2021-01-20 07:25] LABS: BUN Creatinine Ratio 17.4 (6-22); Blood Urea Nitrogen 8 mg/dL (7-17); Calcium 8.9 mg/dL (8.4-10.2); Carbon Dioxide 31 mmol/L (22-32); Chloride 98 mmol/L (98-107); Estimated Glomerular Filt Rate > 60.0 mL/min (>60); Glucose 124 mg/dL (80-110); HEMOLYSIS < 15 (0-50); Magnesium 1.5 mg/dL (1.6-2.3); Phosphorous 2.4 mg/dL (2.8-4.1); Sodium 135 mmol/L (137-145)
[2021-01-20 07:41] LABS: Procalcitonin 0.06 ng/mL (<0.5)
[2021-01-20] MEDS: AMLODIPINE 5 MG TABLET PO ×2 (08:55→21:12)
[2021-01-20] MEDS: MULTIVITAMIN 1 TABLET 1 TAB PO (08:55)
[2021-01-20] MEDS: FOLIC ACID 1 MG TABLET PO (08:55)
[2021-01-20] MEDS: lisinopriL 20 MG TABLET 40 MG PO (08:55)
[2021-01-20] MEDS: VENLAFAXINE ER 75 MG CAP PO (08:56)
[2021-01-20] MEDS: ENOXAPARIN 40 MG/0.4 ML SYRINGE SUBCUT (08:57)
[2021-01-20] MEDS: LORazepam 1 MG TABLET PO ×3 (09:27→18:14)
[2021-01-20] MEDS: MAGNESIUM SULFATE 4 GM/100 ML PIGGYBACK IV (09:41)
[2021-01-20] MEDS: THIAMINE 100 MG in SODIUM CHLORIDE 0.9% 50 ML 200 ML IV (11:10)
[2021-01-20] MEDS: SODIUM,POTASSIUM PHOSPHATES PACKET 2 EACH PO (11:49)
--- NOTE | 2021-01-20 12:07 | CM.DANOTE ---
Patient is a 66 yo female who was admitted on 01/19/21 for ETOH withdrawal. Pt has MCR for insurance and her PCP is Dr. Shakir Ayala. EMR was reviewed. Per MD, pt with a hx of ETOH abuse and sobriety for the last 11 years with recent relapse and admitted for medical detox. ED DRILL SETUP OPERATOR had met with pt in the ED yesterday, see DRILL SETUP OPERATOR note. SW met bedside with pt and her friend Val Ordaz and explained role and pt confirms she is still withdrawing and somewhat sedated and has not really had an appetite but willing to try some hot tea. SW provided tea and pt confirms she is agreeable with friend Val staying bedside. SW inquired about d/c planing and inquired if pt was agreeable to ETOH tx (outpt or inpt) and resources for support. Friend states that she feels that pt's support network can help assist pt with getting back into being Sponsored through AA and pt declines SW setting up any ETOH tx at this time but both pt and friend interested in ETOH resources to be provided prior to d/c in case needed after discharge. Friend Val confirms that she will provide transport for pt at d/c. Pt lives in [place] and now has a roommate that is also a friend who can also assist at d/c if needed. Plan: SW to follow closely for providing ETOH resources to pt and confirming that pt not interested in assist with initiating ETOH tx. EVERETT Baum Discharge Planning/Care Management CM Discharge Assessment Start: 01/20/21 12:05 Freq: Status: Active Protocol: Document 01/20/21 12:05 (Rec: 01/20/21 12:07 [id number]) Discharge Planning Assessment Assigned Boiler Installer EVERETT Bender DPOA/Assigned Designee Name none Advance Directives? No Advance Directives on File No History Provided By Patient,Medical Record Has Patient been admitted in last 30 No days? Prior Living Arrangements House Household Members friend(s) Comment Pt now has a roommate Type of transporation used prior to Drives own vehicle admit Independent with ADL's Yes Is patient alert and oriented? Yes Caregiver for Another No Barriers to Discharge No Discharge Plan Home Community Services Social Work Transportation Arrangement friend Hayde Zabalatz bedside and states she can transport at d/c Referrals Initiated Other Additional Comment Provided [facility] resources to pt and friend Whiteboard Updated in Patient Room with Yes name and ext. # of Boiler Installer Review Status In Process Please Provide Date Initial DC 01/20/21 Assessment Was Performed Next Review Type Continued Stay Review DRILL SETUP OPERATOR - Crude Oil Treater Assessment Start: 01/19/21 15:57 Freq: Status: Discharge Protocol: Document 01/19/21 15:57 LN (Rec: 01/19/21 16:25 LN [id number]) DRILL SETUP OPERATOR/Crude Oil Treater Assessment Start date 01/19/21 Visit Start Time 15:40 End date 01/19/21 Visit End Time 15:50 Total time Care Management spent on 10 patient visit-in minutes Presenting Problem Patient presents to the ED with concern for her recent ETOH relapse. Patient only endorses ETOH relapse to DRILL SETUP OPERATOR but endorses Opiate detox to RN during triage. Precipitating Event(s) Patient denies any triggers. Patient was clean and sober for 11 years and endorses recent relapse. Patient Strengths Patient is seeking detox. Current Behavioral Health Provider(s) None reported Include Facility, Provider, Ph. # Family Hx of Behavioral Abuse None reported Rehab Facilities? ((Date(s), Location(s) Patient endorses hx of ) inpatient/detox at [facility] 11 years ago. History of Withdrawal? Seizures? Patient endorses withdrawals but falls asleep and does not answer DRILL SETUP OPERATOR's questiong. Nurse endorses she recently was provided an Ativan. RN endorses that patient's CIWA withdrawal symptoms are anxiety, itching, mild auditory and visual disturbances, slight agitation , and moderate muscle tremors. Longest Period of Sobriety 11 years Psychosocial information & Support Patient is 66 y/o female who Systems resides in [place], [place]. Patient endorses her friends Hayde and daughter as supports that live locally. School/Work None reported Legal Matters - Outstanding Issues None reported Orientation (Person/Place/Time) A/Ox4 Stated Mood tired Affect (Congruent with Mood?) Flat, congruent with mood Thought Content - Specify/Describe None reported Obsessions, Delusions, Hallucinations Thought Processes (Oyqgtah-Seewdprn-Irsp logical Pjwxnica-Fdtzrlae-Wwpqxulvud- Okezsoetmkxfqt-Szlnowy-Tvxidwtbfixl- Thought Blocking) Speech (Bzqwtn-Nhww-Dxxpkdc-Rapid-Soft- slow, soft Loud-Pressured) Motor (Jvgegb-Kzgiswiph-Peml-Other) slow, patient resting. Not formally assessed Insight (Kbll-Udbs-Vqqv/Limited) fair/limited Judgement (Nolw-Qkta-Qhkp/Limited) fair/limited Impulse Control (Adequate-Impaired) adequate Memory (Uqtgghiby-Sgbjhs-Ghhbig, intact, not formally assessed Impaired-Intact) Concentration (Intact-Impaired) fairly intact Attention (Intact-Impaired) fairly intact, patient falling asleep after Ativan effects impact patient. Behavior (Appropriate-Inappropriate) appropriate Additional Comment Patient is calm and communicative. Suicidal Ideation (Plan) No Homicidal Ideation (Plan) No Comment None reported. Patient denies HI and SI in triage. Intervention DRILL SETUP OPERATOR receives consult and enters room to meet with patient. Patient endorses that she is seeking detox. Patient endorses that she relapsed after 11 years of sobriety. Patient endorses she has been drinking a pint of vodka a day . Patient denies hx of AA meetings, MH outpatient or [facility] outpatient engagement. Patient does not endorses interest in outpatient providers at this time. Patient states one step at a time. At this time patient was not able to communicate with patient regarding planning for the future in regards to addressing ETOH use. It is the opinion of this DRILL SETUP OPERATOR that patient would benefit from detox to addresss patient 's recent detox. Per residential driver and ED provider Dr. Alvarado patient is to be admitted for medical ETOH detox and decreased Sodium levels. RA Plan Patient to be admitted to acute care, DCP to f/u with patient regarding DCP for outaptient follow up.
[2021-01-20] MEDS: POTASSIUM CHLORIDE 20 MEQ TAB 40 MEQ PO (14:21)
[2021-01-20] MEDS: chlordiazePOXIDE 10 MG CAPSULE 20 MG PO ×2 (14:21→21:12)
--- NOTE | 2021-01-20 18:30 | P.PN_ITS ---
Subjective Subjective Date Patient Seen: 01/20/21 Time Patient Seen: 08:00 Interval history: Today she feels somewhat better. She is scoring less on CIWA. However she remains anxious and tremulous Exam Vital Signs (past 8 hours): - 01/20/21 12:00 01/20/21 13:30 01/20/21 16:00 Temperature 100.0 F H 98.9 F Pulse Rate 91 H 92 H 92 H Respiratory Rate 19 20 19 Blood Pressure 168/102 H 167/94 H 167/94 H Pulse Oximetry 96 96 Oxygen Delivery Method Room Air Oxygen Flow Rate 0 Narrative Exam Narrative: GEN: no acute distress HEENT: moist mucous membranes, PERRL NECK: trachea midline, no JVD CV: regular rate and rhythm PULM: clear bilaterally ABD: soft, nontender, nondistended, no organomegaly EXT: warm and well perfused, no edema SKIN: flushed skin in face and chest NEURO: tremulous, anxious, diaphoresis Objective Labs Result Diagrams: 01/20/21 07:05 01/20/21 07:05 Labs: Laboratory Results - last 24 hr 01/20/21 01/20/21 01/20/21 07:05 07:05 07:05 WBC 6.4 RBC 4.56 Hgb 15.3 Hct 44.1 MCV 96.6 MCH 33.5 MCHC 34.7 RDW 16.4 H Plt Count 207 Neut % (Auto) 69.3 Lymph % (Auto) 20.7 L [place] % (Auto) 9.3 Eos % (Auto) 0.1 L Baso % (Auto) 0.6 Neut # (Auto) 4400 Lymph # (Auto) 1300 [place] # (Auto) 600 Eos # (Auto) 0 Baso # (Auto) 0 Sodium 135 L Potassium 3.0 L Chloride 98 Carbon Dioxide 31 BUN 8 Creatinine 0.46 L Estimated GFR > 60.0 BUN/Creatinine Ratio 17.4 Glucose 124 H Calcium 8.9 Phosphorus 2.4 L Magnesium 1.5 L Procalcitonin 0.06 PFSH Medical History Agoraphobia (Unknown) Allergic rhinitis (Unknown) Allergic rhinitis due to pollen (06/01/15) Anxiety (Unknown) Chronic pain of left knee (06/19/17) Chronic sinusitis (Unknown) Depression (03/19/15) Depression (Unknown) Essential hypertension (03/19/15) GERD (gastroesophageal reflux disease) (Unknown) Herpes (Unknown) History of ETOH abuse (~2011) Hypertension (Unknown) Knee pain, bilateral (Unknown) Neck pain (Unknown) Osteoarthritis (Unknown) PTSD (post-traumatic stress disorder) (Unknown) Pure hypercholesterolemia (03/24/17) Spinal stenosis (Unknown) Tension headache (Unknown) Uncomplicated opioid dependence Surgical History H/O LEEP (Unknown) History of repair of hiatal hernia (Unknown) Hx of bilateral breast implants (Unknown) Hx of cervical discectomy (12/2013) Hx of section (Unknown) Family History Sister Cancer Grandmother Diabetes mellitus Social History household members: friend(s) Smoking Status: Current every day smoker alcohol intake: current Assessment & Plan Assessment & Plan narrative: Ms. Pineda is a 66W with H chronic pain, alcohol abuse, hypertension who presents with tremulousness and anxiety consistent with alcohol withdrawa. 1. Alcohol withdrawal in setting of alcohol abuse -alcohol positive in 200s, but already withdrawing -given ativan in ED, so now phenobarb protocol -continue with ativan, ordered [facility] protocol -ordere for MVI, folate thiamine 2. HTN -continue home medications 3. Anxiety -ativan per [facility] protocol -continue venlafaxine 4. Chronic pain -continue percocet CODE: Full Proxy: Maranda Trujillo, friend I have utilized all available immediate resources to obtain, update, or review the patient's current medications. Time Spent With Patient Critical Care time: I spent a total of [] minutes of critical care time on this patient's care today; this time is exclusive of procedural time. Quality VTE Deep Vein Thrombosis/Pulmonary Embolism Present on Admission: No
[2021-01-21] VITALS (17 sets, daily range): BP systolic 134–170; BP diastolic 70–103; PULSE 68–102; RESP 14–24; TEMP 36.6–37.2; O2SAT 94–98
[2021-01-21] MEDS: LORazepam 2 MG/ML INJ IV (01:33)
[2021-01-21] MEDS: OXYCODONE/ACETAMINOPHEN 5/325 TABLET 1 TAB PO (04:09)
--- NOTE | 2021-01-21 04:58 | PC.NURSE ---
alert, oriented x 2-3 forgets day of week. CIWA has ranged from 3-11 this shift. lorazepam PRN CIWA scale has been given 4x since start of shift. CIWA s/sx: tremors, increased agitation. Lorazepm works well for her s/sx of anxiety. 1 PA for transfers, and mobility. very weak, slumped over posture, poor trunk control. continent of b/b, wears attends. 1-2 PA to BSC. loose BM. sister Hayde will return tomorrow to sit w/ patient. call light w/in reach.
[2021-01-21] MEDS: LORazepam 1 MG TABLET PO ×5 (06:30→20:12)
--- NOTE | 2021-01-21 08:16 | P.PN_ITS ---
Subjective Subjective Date Patient Seen: 01/21/21 Time Patient Seen: 08:17 Interval history: Complains of mild nausea, sweating, tremors. No chest pain, palpitations, abdominal pain, vomiting this AM. Exam Vital Signs (past 8 hours): - 01/21/21 03:36 01/21/21 03:37 01/21/21 03:40 Temperature 98.7 F Pulse Rate 81 68 Respiratory Rate 16 14 Blood Pressure 141/70 H Pulse Oximetry 97 97 01/21/21 06:22 Temperature 98.0 F Pulse Rate 102 H Respiratory Rate 16 Blood Pressure 166/92 H Pulse Oximetry 94 Oxygen Delivery Method Room Air Oxygen Flow Rate 0 Narrative Exam Narrative: ?GEN: no acute distress, appears slightly older than stated age. HEENT: moist mucous membranes, PERRL NECK: trachea midline, no JVD CV: regular rate and rhythm, no m/r/g. PULM: clear bilaterally no wheezing, rhonchi, rales ABD: soft, nontender, nondistended, no organomegaly EXT: warm and well perfused, no edema SKIN: no rash or erythema. NEURO: tremulous, mildly anxious, diaphoresis Objective Labs Result Diagrams: 01/20/21 07:05 01/20/21 07:05 [facility] Medical History Agoraphobia (Unknown) Allergic rhinitis (Unknown) Allergic rhinitis due to pollen (06/01/15) Anxiety (Unknown) Chronic pain of left knee (06/19/17) Chronic sinusitis (Unknown) Depression (03/19/15) Depression (Unknown) Essential hypertension (03/19/15) GERD (gastroesophageal reflux disease) (Unknown) Herpes (Unknown) History of ETOH abuse (~2011) Hypertension (Unknown) Knee pain, bilateral (Unknown) Neck pain (Unknown) Osteoarthritis (Unknown) PTSD (post-traumatic stress disorder) (Unknown) Pure hypercholesterolemia (03/24/17) Spinal stenosis (Unknown) Tension headache (Unknown) Uncomplicated opioid dependence Surgical History H/O LEEP (Unknown) History of repair of hiatal hernia (Unknown) Hx of bilateral breast implants (Unknown) Hx of cervical discectomy (12/2013) Hx of section (Unknown) Family History Sister Cancer Grandmother Diabetes mellitus Social History household members: friend(s) Smoking Status: Current every day smoker alcohol intake: current Assessment & Plan Assessment & Plan narrative: Ms. Pineda is a 66W with PMH chronic pain, alcohol abuse, hypertension who presents with tremulousness and anxiety consistent with alcohol withdrawa. 1. Alcohol withdrawal in setting of alcohol abuse -alcohol positive in 200s, but already withdrawing -given ativan in ED, so no phenobarb protocol -continue with ativan, ordered [facility] protocol -ordered for MVI, folate thiamine -increase librium today for continued withdrawal symptoms. 2. HTN -continue home medications, no medication adjustments currently given active w ithdrawal. 3. Anxiety -ativan per [facility] protocol -continue venlafaxine 4. Chronic pain -continue percocet CODE: Full Proxy: cecelia Mosley Time Spent With Patient Critical Care time: I spent a total of [] minutes of critical care time on this patient's care today; this time is exclusive of procedural time. Quality VTE Deep Vein Thrombosis/Pulmonary Embolism Present on Admission: No
[2021-01-21] MEDS: ENOXAPARIN 40 MG/0.4 ML SYRINGE SUBCUT (08:35)
[2021-01-21] MEDS: MULTIVITAMIN 1 TABLET 1 TAB PO (08:36)
[2021-01-21] MEDS: FAMOTIDINE 20 MG TABLET PO ×2 (08:36→20:12)
[2021-01-21] MEDS: lisinopriL 20 MG TABLET 40 MG PO (08:36)
[2021-01-21] MEDS: VENLAFAXINE ER 75 MG CAP PO (08:41)
[2021-01-21] MEDS: AMLODIPINE 5 MG TABLET PO ×2 (08:42→20:12)
[2021-01-21] MEDS: chlordiazePOXIDE 10 MG CAPSULE 50 MG PO ×3 (08:42→20:11)
[2021-01-21] MEDS: FOLIC ACID 1 MG TABLET PO (08:45)
[2021-01-21] MEDS: THIAMINE 100 MG in SODIUM CHLORIDE 0.9% 50 ML 200 ML IV (08:46)
[2021-01-21] MEDS: NICOTINE 21 MG PATCH TOP (13:20)
[2021-01-21 19:24] LABS: Clostridium Difficile Tox PCR Negative for C. diff (Negative)
[2021-01-21] MEDS: ACETAMINOPHEN 325 MG TABLET 650 MG PO (20:12)
[2021-01-22] VITALS (19 sets, daily range): BP systolic 144–162; BP diastolic 82–103; PULSE 68–99; RESP 14–22; TEMP 36.2–36.7; O2SAT 96–100
[2021-01-22] MEDS: LORazepam 1 MG TABLET PO ×3 (00:33→11:34)
[2021-01-22] MEDS: VENLAFAXINE ER 75 MG CAP PO (08:10)
[2021-01-22] MEDS: FAMOTIDINE 20 MG TABLET PO ×2 (08:10→21:30)
[2021-01-22] MEDS: lisinopriL 20 MG TABLET 40 MG PO (08:10)
[2021-01-22] MEDS: chlordiazePOXIDE 10 MG CAPSULE 50 MG PO ×3 (08:11→21:30)
[2021-01-22] MEDS: ENOXAPARIN 40 MG/0.4 ML SYRINGE SUBCUT (08:11)
[2021-01-22] MEDS: FOLIC ACID 1 MG TABLET PO (08:12)
[2021-01-22] MEDS: MULTIVITAMIN 1 TABLET 1 TAB PO (08:12)
[2021-01-22] MEDS: AMLODIPINE 5 MG TABLET PO ×2 (08:12→21:30)
[2021-01-22] MEDS: NICOTINE 21 MG PATCH TOP (08:13)
[2021-01-22] MEDS: THIAMINE 100 MG in SODIUM CHLORIDE 0.9% 50 ML 200 ML IV (08:15)
--- NOTE | 2021-01-22 11:22 | P.PN_ITS ---
Subjective Subjective Date Patient Seen: 01/22/21 Time Patient Seen: 11:22 Interval history: No chest pain, palpitations, abdominal pain, vomiting this AM. Feeling slightly improved but still shaky. Exam Vital Signs (past 8 hours): - 01/22/21 05:55 01/22/21 07:00 01/22/21 08:10 Temperature 97.6 F Pulse Rate 89 97 H Respiratory Rate 22 Blood Pressure 161/91 H 144/82 H Pulse Oximetry 98 96 01/22/21 08:48 01/22/21 09:00 Temperature 98.0 F Pulse Rate 97 H Respiratory Rate 22 Blood Pressure 144/82 H Pulse Oximetry 98 98 Oxygen Delivery Method Room Air Oxygen Flow Rate 0 Narrative Exam Narrative: GEN: no acute distress, appears slightly older than stated age. HEENT: moist mucous membranes, PERRL NECK: trachea midline, no JVD CV: regular rate and rhythm, no m/r/g. PULM: clear bilaterally no wheezing, rhonchi, rales ABD: soft, nontender, nondistended, no organomegaly EXT: warm and well perfused, no edema SKIN: no rash or erythema. NEURO: tremulous, no longer anxious appearing. Mild tongue fasciculations. Objective Labs Result Diagrams: 01/20/21 07:05 01/20/21 07:05 Labs: Laboratory Results - last 24 hr 01/21/21 18:15 C. difficile Tox (PCR) Negative for c. diff [facility] Medical History Agoraphobia (Unknown) Allergic rhinitis (Unknown) Allergic rhinitis due to pollen (06/01/15) Anxiety (Unknown) Chronic pain of left knee (06/19/17) Chronic sinusitis (Unknown) Depression (03/19/15) Depression (Unknown) Essential hypertension (03/19/15) GERD (gastroesophageal reflux disease) (Unknown) Herpes (Unknown) History of ETOH abuse (~2011) Hypertension (Unknown) Knee pain, bilateral (Unknown) Neck pain (Unknown) Osteoarthritis (Unknown) PTSD (post-traumatic stress disorder) (Unknown) Pure hypercholesterolemia (03/24/17) Spinal stenosis (Unknown) Tension headache (Unknown) Uncomplicated opioid dependence Surgical History H/O LEEP (Unknown) History of repair of hiatal hernia (Unknown) Hx of bilateral breast implants (Unknown) Hx of cervical discectomy (12/2013) Hx of section (Unknown) Family History Sister Cancer Grandmother Diabetes mellitus Social History household members: friend(s) Smoking Status: Current every day smoker alcohol intake: current Assessment & Plan Assessment & Plan narrative: Ms. Pineda is a 66W with PMH chronic pain, alcohol abuse, hypertension who presents with tremulousness and anxiety consistent with alcohol withdrawa. 1. Alcohol withdrawal in setting of alcohol abuse -alcohol positive in 200s but already withdrawing in the ER -continue with ativan, ordered CIWA protocol -ordered for MVI, folate thiamine -continue same dose librium today, 50 TID. Likely start taper tomorrow. 2. HTN -continue home medications, no medication adjustments currently given active withdrawal. 3. Anxiety -ativan per CIWA protocol -continue venlafaxine 4. Chronic pain -continue percocet CODE: Full Proxy: cecelia Mosley dispo: anticipate discharge home in 1-2 days after improved withdrawal symptoms and continued librium taper Time Spent With Patient Critical Care time: I spent a total of [] minutes of critical care time on this patient's care today; this time is exclusive of procedural time. Quality VTE Deep Vein Thrombosis/Pulmonary Embolism Present on Admission: No
--- NOTE | 2021-01-22 14:33 | DIET.CONS ---
Dietary Consultation Note Admission Date: 01/19/2021 15:53 Assessment: 66 y/o F with PMH of ETOH abuse. Appropriately on MVI, Thiamine, and Folate. Last labs indicate 135 Na, 124 glucose, 2.4 phos, 1.5 Mg, 78 AST. Endorses one meal per day (1p: sandwich PBJ with milk). ETOH intake reported as a medium bottle of vodka per day. Drinks water now and then. When she was sober, endorses eating 3-4 meals per day. EMR weight hx indicates 15% weight loss which she indicates has happened over the last two months. Reports she had been sober for 11-12 years. Recently started drinking in excess again in the last two months. This is consistent with her son's release from snf two months ago. She is tearful in discussing her relationship with her son. States he blames me for a lot. Reports use of AA meetings in the past, but some barriers include being extremely shy and reports the AA meetings near her consist of participants that are required to go and often drink at bars after the meetings. Transportation to other meeting locations also a barrier. Reports good support from friends. Ht: 165.1 cm Wt: 58.967 kg BMI: 21.6 UBW: 59-64kg (reported) Last BM: 01/22/21 (01/22/21 00:30) MNA: 13 Alfred Score: 20 Diet: 01/20/21 Breakfast Heart Healthy Diet Diet Modifications: Nutrition Percent Meal Consumed 100% 01/22/21 09:00 Percent Meal Consumed 75% 01/21/21 19:10 Percent Meal Consumed 50% 01/21/21 13:40 Percent Meal Consumed 25% 01/21/21 08:32 Percent Meal Consumed 50% 01/20/21 18:00 Percent Meal Consumed 100% 01/20/21 17:56 Labs: RBC 4.56 X10^6/uL (4.0-5.2) 01/20/21 07:05 Hgb 15.3 g/dL (12.0-16.0) 01/20/21 07:05 Hct 44.1 % (36-46) 01/20/21 07:05 Creatinine 0.46 mg/dL (0.52-1.04) L 01/20/21 07:05 Nutrition Diagnosis: 1. Acute severe malnutrition r/t excessive ETOH intake over the last two months aeb reported significant weight loss 15% mostly in the last two months and ETOH abuse with supporting labs indicated above. 2. Excessive ETOH intake r/t potential stress of relationship with son aeb her report and ETOH withdrawal Interventions: Sobriety MNT education Monitoring/Evaluations: labs, weight, PO Electronically Signed by: Kaylin Jackson 01/22/21 14:33 Clinical Dietitian [address] [address]
[2021-01-22] MEDS: LOPERAMIDE 2 MG CAPSULE PO (17:27)
--- NOTE | 2021-01-22 18:28 | PC.NURSE ---
Pt is A&Ox2, forgetful of date, thinking it's January 15. Reinforced using the call light before getting up, however she continues to stand up. Very unsteady gait, however shaking hands or somewhat improved. Mildly diaphoretic this a.m. Medicated with PRN 1mg Ativan x2 this a.m. for CIWA score of 8. Assisted pt to shower. Up to BR multiple x for loose BM. notified and prn loperamide administered per new orders. Plan for repeat labs in a.m. Sister Friend Val at bedside this evening supportive, states plan is to take pt home for rehab when medically stable. Noted BP slightly improved today. Pt frequently asking for anxiety medications but noted to have improved tremors and po intake slightly improved to 50-75% of meals. Continuous monitoring.
[2021-01-22] MEDS: OXYCODONE/ACETAMINOPHEN 5/325 TABLET 1 TAB PO ×2 (18:57→21:30)
[2021-01-23] VITALS (18 sets, daily range): BP systolic 131–143; BP diastolic 42–86; PULSE 63–85; RESP 16–22; TEMP 36.1–36.3; O2SAT 96–99
[2021-01-23 06:44] LABS: Blood Urea Nitrogen 13 mg/dL (7-17); Calcium 9.9 mg/dL (8.4-10.2); Carbon Dioxide 29 mmol/L (22-32); Chloride 100 mmol/L (98-107); Estimated Glomerular Filt Rate > 60.0 mL/min (>60); Glucose 107 mg/dL (80-110); HEMOLYSIS < 15 (0-50); Magnesium 1.8 mg/dL (1.6-2.3); Sodium 137 mmol/L (137-145)
[2021-01-23] MEDS: LORazepam 1 MG TABLET PO ×2 (08:39→16:05)
[2021-01-23] MEDS: MULTIVITAMIN 1 TABLET 1 TAB PO (08:41)
[2021-01-23] MEDS: FAMOTIDINE 20 MG TABLET PO ×2 (08:41→20:05)
[2021-01-23] MEDS: VENLAFAXINE ER 75 MG CAP PO (08:41)
[2021-01-23] MEDS: lisinopriL 20 MG TABLET 40 MG PO (08:41)
[2021-01-23] MEDS: THIAMINE 100 MG in SODIUM CHLORIDE 0.9% 50 ML 200 ML IV (08:42)
[2021-01-23] MEDS: ENOXAPARIN 40 MG/0.4 ML SYRINGE SUBCUT (08:42)
[2021-01-23] MEDS: AMLODIPINE 5 MG TABLET PO ×2 (08:42→20:05)
[2021-01-23] MEDS: FOLIC ACID 1 MG TABLET PO (08:42)
[2021-01-23] MEDS: chlordiazePOXIDE 25 MG CAPSULE 50 MG PO (09:12)
--- NOTE | 2021-01-23 09:32 | PM.PN.1 ---
Subjective Subjective Date Patient Seen: 01/23/21 Time Patient Seen: 09:32 Interval history: No chest pain, palpitations, abdominal pain, vomiting this AM. Feeling slightly improved but still shaky. Exam Vital Signs (past 8 hours): - 01/23/21 03:00 01/23/21 05:03 01/23/21 08:41 Temperature 97.0 F L Pulse Rate 85 Respiratory Rate 18 Blood Pressure 137/69 139/82 Pulse Oximetry 96 98 01/23/21 08:43 01/23/21 08:58 01/23/21 08:59 Temperature 97 F L Pulse Rate 82 Respiratory Rate 18 Blood Pressure 139/86 Pulse Oximetry 97 98 98 Oxygen Delivery Method Room Air Oxygen Flow Rate 0 Narrative Exam Narrative: GEN: no acute distress, appears slightly older than stated age. HEENT: moist mucous membranes, PERRL NECK: trachea midline, no JVD CV: regular rate and rhythm, no m/r/g. PULM: clear bilaterally no wheezing, rhonchi, rales ABD: soft, nontender, nondistended, no organomegaly EXT: warm and well perfused, no edema SKIN: no rash or erythema. NEURO: tremulous, no longer anxious appearing. Mild tongue fasciculations. Objective Labs Result Diagrams: 01/20/21 07:05 01/23/21 06:09 Labs: Laboratory Results - last 24 hr 01/23/21 06:09 Sodium 137 Potassium 3.0 L Chloride 100 Carbon Dioxide 29 BUN 13 Creatinine 0.52 Estimated GFR > 60.0 BUN/Creatinine Ratio 25.0 H Glucose 107 Calcium 9.9 Magnesium 1.8 [facility] Medical History Agoraphobia (Unknown) Allergic rhinitis (Unknown) Allergic rhinitis due to pollen (06/01/15) Anxiety (Unknown) Chronic pain of left knee (06/19/17) Chronic sinusitis (Unknown) Depression (03/19/15) Depression (Unknown) Essential hypertension (03/19/15) GERD (gastroesophageal reflux disease) (Unknown) Herpes (Unknown) History of ETOH abuse (~2011) Hypertension (Unknown) Knee pain, bilateral (Unknown) Neck pain (Unknown) Osteoarthritis (Unknown) PTSD (post-traumatic stress disorder) (Unknown) Pure hypercholesterolemia (03/24/17) Spinal stenosis (Unknown) Tension headache (Unknown) Uncomplicated opioid dependence Surgical History H/O LEEP (Unknown) History of repair of hiatal hernia (Unknown) Hx of bilateral breast implants (Unknown) Hx of cervical discectomy (12/2013) Hx of section (Unknown) Family History Sister Cancer Grandmother Diabetes mellitus Social History household members: friend(s) Smoking Status: Current every day smoker alcohol intake: current Assessment & Plan Assessment & Plan narrative: Ms. Pineda is a 66W with PMH chronic pain, alcohol abuse, hypertension who presents with tremulousness and anxiety consistent with alcohol withdrawal. 1. Alcohol withdrawal in setting of alcohol abuse -alcohol positive in 200s but already withdrawing in the ER -continue with ativan, ordered CIND protocol -ordered for MVI, folate thiamine -decrease librium today, 30 TID. 2. HTN -continue home medications, no medication adjustments currently given active withdrawal. 3. Anxiety -ativan per CIWA protocol -continue venlafaxine 4. Chronic pain -continue percocet CODE: Full Proxy: cecelia Mosley dispo: anticipate discharge home in 1-2 days after improved withdrawal symptoms and continued librium taper Time Spent With Patient Critical Care time: I spent a total of [] minutes of critical care time on this patient's care today; this time is exclusive of procedural time. Quality VTE Deep Vein Thrombosis/Pulmonary Embolism Present on Admission: No
[2021-01-23] MEDS: POTASSIUM CHLORIDE 20 MEQ TAB 40 MEQ PO ×2 (12:51→16:05)
[2021-01-23] MEDS: OXYCODONE/ACETAMINOPHEN 5/325 TABLET 1 TAB PO (12:53)
[2021-01-23] MEDS: chlordiazePOXIDE 25 MG CAPSULE PO ×2 (15:22→20:06)
[2021-01-23] MEDS: LOPERAMIDE 2 MG CAPSULE PO (15:24)
--- NOTE | 2021-01-23 16:27 | PC.NURSE ---
Day shift: This development writer has taken over care of this Pt at approx 1615 today. Call light in reach and bed alarm is on as Pt can be impulsive. High fall risk protocol in place. CIWA score 8 and was given 1mg PO Ativan per MAR. Pt denies any chest pain or nausea. She does c/o left knee pain and this pain is chronic. She stated it is bone on bone. Will continue with plan of care.
[2021-01-23] MEDS: OXYCODONE IR 5 MG TABLET PO (17:27)
[2021-01-23] MEDS: LORazepam 2 MG/ML INJ IV (20:04)
[2021-01-23] MEDS: SODIUM CHLORIDE 0.9% FLUSH 10 ML IV (20:05)
[2021-01-23] MEDS: ACETAMINOPHEN 325 MG TABLET 650 MG PO (20:05)
[2021-01-23 20:50] LABS: HEMOLYSIS 45 (0-50); Potassium 3.7 mmol/L (3.4-5.1)
[2021-01-24] VITALS (7 sets, daily range): BP systolic 138–156; BP diastolic 65–94; PULSE 70–84; RESP 14–18; TEMP 35.8–36.6; O2SAT 93–99
[2021-01-24 06:51] LABS: BUN Creatinine Ratio 20.4 (6-22); Blood Urea Nitrogen 11 mg/dL (7-17); Calcium 9.8 mg/dL (8.4-10.2); Carbon Dioxide 28 mmol/L (22-32); Chloride 103 mmol/L (98-107); Estimated Glomerular Filt Rate > 60.0 mL/min (>60); Glucose 93 mg/dL (80-110); HEMOLYSIS < 15 (0-50); Magnesium 1.8 mg/dL (1.6-2.3); Potassium 3.9 mmol/L (3.4-5.1); Sodium 137 mmol/L (137-145)
[2021-01-24] MEDS: LORazepam 1 MG TABLET PO (07:40)
[2021-01-24] MEDS: AMLODIPINE 5 MG TABLET PO (08:07)
[2021-01-24] MEDS: FAMOTIDINE 20 MG TABLET PO (08:08)
[2021-01-24] MEDS: MULTIVITAMIN 1 TABLET 1 TAB PO (08:08)
[2021-01-24] MEDS: lisinopriL 20 MG TABLET 40 MG PO (08:08)
[2021-01-24] MEDS: FOLIC ACID 1 MG TABLET PO (08:08)
[2021-01-24] MEDS: THIAMINE 100 MG TABLET PO (08:09)
[2021-01-24] MEDS: NICOTINE 21 MG PATCH TOP (08:09)
[2021-01-24] MEDS: SODIUM CHLORIDE 0.9% FLUSH 10 ML IV (08:09)
[2021-01-24] MEDS: VENLAFAXINE ER 75 MG CAP PO (08:10)
[2021-01-24] MEDS: ENOXAPARIN 40 MG/0.4 ML SYRINGE SUBCUT (08:10)
--- NOTE | 2021-01-24 08:21 | PM.DS.1 ---
History of Present Illness History of Present Illness Date Patient Seen: 01/24/21 Time Patient Seen: 08:21 Chief complaint: Needs medical detox- alcohol/opiates Narrative: Per Dr. Watts, Ms. Pineda is a 66W with PMH alcohol abuse, anxiety, HTN, chronic pain who comes in for EtOH detox. She underwent detox 11 years ago, and says she has been sober since. For the last two months she has been drink 1/5 of hard alcohol daily. She also takes percocet for pain. She had her last drink earlier today, she has been vomiting, anxious, tremulous. She had no blood in vomit. No history of seizures. In the ED workup was done, vitals notable for heart rate in 90s, respiratory rate in 20s, blood pressure 170s/110s. Labs notable for normal CBC, Na 133, K 3.0, creatinine 0.45, AST 78. EtOH 221. She was gien ativan and admitted for further treatment. Discharge Providers Provider Date of admission: 01/19/21 15:53 Discharge Date: 01/24/21 Primary care physician: Shakir Ayala MD Consults: 01/19/21 14:37 Consult to [facility] [place] [place] - [employer] Stat Comment: 01/19/21 17:03 Consult to Dietitian, Adult Routine Comment: Reason For Exam: etoh Discharge provider: Juan José Rock DO Summary Hospital Course Discharge Diagnosis: 1. Alcohol withdrawal in setting of alcohol abuse 2. HTN 3. Anxiety 4. Chronic pain Hospital Course: Ms. Pineda is a 66W with PMH chronic pain, alcohol abuse, hypertension who presents with tremulousness and anxiety consistent with alcohol withdrawal. Vent patient presented with an alcohol level in the 200s but was withdrawing in the emergency room. She was started on a Librium which needed to be increased on hospital day 2, but then she was able to be tapered. On the day of discharge, her symptoms were markedly improved. No other changes to her home medications are recommended at this time. She reported that she did not have any Ativan at home, and it does appear that this was sent recently by her PCP though to a pharmacy in [place] on the day she was admitted. A few days of extra Ativan were provided for her. I do recommend that she follow-up with her primary care provider as soon as possible for further medication adjustments. Time Spent with Patient Time spent: Greater than 30 minutes Exam Vital Signs (past 8 hours): - 01/24/21 04:00 01/24/21 05:47 01/24/21 08:08 Temperature 98 F Pulse Rate 77 Respiratory Rate 18 Blood Pressure 138/65 156/94 H Pulse Oximetry 97 98 Oxygen Delivery Method Room Air Oxygen Flow Rate 0 Narrative Exam Narrative: GEN: no acute distress, appears slightly older than stated age HEENT: moist mucous membranes, PERRL NECK: trachea midline, no JVD CV: regular rate and rhythm, no m/r/g. PULM: clear bilaterally no wheezing, rhonchi, rales ABD: soft, nontender, nondistended, no organomegaly EXT: warm and well perfused, no edema SKIN: no rash or erythema. NEURO: minimal tremulousness, no tongue fasciculations. Stable on her feet unassisted. Objective Labs Result Diagrams: 01/20/21 07:05 01/24/21 06:00 Labs: Laboratory Results - last 24 hr 01/23/21 01/24/21 20:20 06:00 Sodium 137 Potassium 3.7 3.9 Chloride 103 Carbon Dioxide 28 BUN 11 Creatinine 0.54 Estimated GFR > 60.0 BUN/Creatinine Ratio 20.4 Glucose 93 Calcium 9.8 Magnesium 1.8 [facility] Medical History Agoraphobia (Unknown) Allergic rhinitis (Unknown) Allergic rhinitis due to pollen (06/01/15) Anxiety (Unknown) Chronic pain of left knee (06/19/17) Chronic sinusitis (Unknown) Depression (03/19/15) Depression (Unknown) Essential hypertension (03/19/15) GERD (gastroesophageal reflux disease) (Unknown) Herpes (Unknown) History of ETOH abuse (~2011) Hypertension (Unknown) Knee pain, bilateral (Unknown) Neck pain (Unknown) Osteoarthritis (Unknown) PTSD (post-traumatic stress disorder) (Unknown) Pure hypercholesterolemia (03/24/17) Spinal stenosis (Unknown) Tension headache (Unknown) Uncomplicated opioid dependence Surgical History H/O LEEP (Unknown) History of repair of hiatal hernia (Unknown) Hx of bilateral breast implants (Unknown) Hx of cervical discectomy (12/2013) Hx of section (Unknown) Family History Sister Cancer Grandmother Diabetes mellitus Social History household members: friend(s) Smoking Status: Current every day smoker alcohol intake: current Discharge Plan Discharge Plan Patient Disposition: Home Provider Discharge Comment: You were admitted to the hospital with alcohol withdrawal. Please follow up with Dr. Ayala in the next week to discuss ongoing medications including your ativan and oxycodone. You should have a new prescription of lorazepam but this was sent to an [facility] pharmacy on the day you were admitted. A few additional pills were sent to [facility] in [place]. Please follow up with Dr. Ayala next week or as soon as possible. Discharge orders & Medications Prescriptions: Continued amlodipine 5 mg tablet 5 mg PO BID Qty: 180 RF: 3 lisinopril [Zestril] 40 mg tablet 40 mg PO QDAY Qty: 90 RF: 3 hydrochlorothiazide 25 mg tablet 25 mg PO DAILY Qty: 90 RF: 3 oxycodone-acetaminophen 5-325 mg tablet 1 tab PO TIDP PRN (Reason: pain) Qty: 90 RF: 0 venlafaxine 75 mg capsule,extended release 24hr 75 mg PO DAILY Qty: 90 RF: 0 lorazepam [Ativan] 0.5 mg tablet 0.5 mg PO BID PRN (Reason: anxiety) 5 Days Qty: 10 RF: 0 Medication counseling provided by Pharmacist: Yes Follow up/Referrals: Shakir Ayala MD [Primary Care Provider] - Diet/Activity/Treatments Diet: Diet as Tolerated Activity: As tolerated Visit Report/Discharge Packet Instructions: Drug and Alcohol Withdrawal, DI for Prescription Opioid Use Discharge Data Primary Care Provider: Shakir Ayala Quality VTE Deep Vein Thrombosis/Pulmonary Embolism Present on Admission: No
[2021-01-24] MEDS: OXYCODONE IR 5 MG TABLET PO (10:18)
--- NOTE | 2021-01-24 12:42 | PC.NURSE ---
Discharge Note Patient A&O, VSS, RA, no complaints of pain/discomfort. Discharge packet reviewed with patient, all questions/concerns addressed. Patient reminded to pharmacy picking technician prescriptions at preferred pharmacy. Midline discontinued. All belongings packed and given to patient along with discharge packet. Patient taken down via wheelchair to POV.
== END 2021-01-24 12:30 | disposition home or self-care (01) | DRG 896 ==
LOC: ED 13:49 → AC 15:54
PROVIDERS: Internal Medicine; Admitting Provider Internal Medicine; Emergency Provider Emergency Medicine; PCP Student in an Organized Health Care Education/Training Program; Referring Provider Internal Medicine; Visit Provider Internal Medicine
DX: F10.139 Alcohol abuse with withdrawal, unspecified (principal); E43 Unspecified severe protein-calorie malnutrition; Y90.7 Blood alcohol level of 200-239 mg/100 ml; Z68.21 Body mass index [BMI] 21.0-21.9, adult; F17.210 Nicotine dependence, cigarettes, uncomplicated; I10 Essential (primary) hypertension; F41.9 Anxiety disorder, unspecified; G89.29 Other chronic pain; Z20.822 Contact with and (suspected) exposure to COVID-19
CPT/HCPCS: 36415; 71045; 80048; 80053; 80305; 80320; 80329; 81001; 83735; 84100; 84132; 84145; 84439; 84443; 85025; 87040; 87493; 87635; 94760; 96361; 96365; 96366; 96375; 96376; 99284; 99291; 99406; C9803; A9270; G0480; J1642; J1650; J2060; J2405; J3475

== ENCOUNTER → 2021-10-11 14:41 | Outpatient (CLI) | payer MEDICARE, MEDICAID, SELFPAY ==
[2021-01-19 17:36] VITALS: BMI 21.6
--- NOTE | 2021-10-11 14:43 | DI.MG.S_ITS ---
BILATERAL DIGITAL SCREENING MAMMOGRAM 3D/2D WITH CAD WITH AUGMENTATION: 10/11/2021 CLINICAL: Routine screening. Comparison is made to exams dated: 09/17/2020 breast MRI, 09/17/2020 mammogram, 11/21/2019 mammogram, and 01/10/2018 mammogram - [facility]. There are scattered fibroglandular elements in both breasts. Current study was also evaluated with a Computer Aided Detection (CAD) system. Bilateral breast implants are stable. Right breast implant extracapsular rupture. Left breast implant contour is minimally irregular. No significant masses, calcifications, or other findings are seen in either breast. There has been no significant interval change. IMPRESSION: NEGATIVE There is no mammographic evidence of malignancy. Bilateral breast implants are stable. Right breast implant extracapsular rupture. Left breast implant possible rupture. Breast implant MRI could be considered for further evaluation. A 1 year screening mammogram is recommended. Based on the Tyrer Cuzick model (a risk assessment model) the patient's lifetime risk is 4.0% and her 10 year risk is 1.8%. According to the ACR, ACS, and NCCN guidelines, an annual breast MRI exam along with mammogram is recommended if the patient's lifetime risk is 20% or greater. This exam was interpreted at Station ID: [id number]. NOTE: For mammograms, a report in lay terms will be sent to the patient. Approximately 15% of breast malignancies will not be visualized mammographically. In the management of a palpable breast mass, a negative mammogram must not discourage biopsy of a clinically suspicious lesion. Electronically Signed By: Eddie Lin M.D. slc/:10/12/2021 08:49:43 letter sent: Normal Exam ACR BI-RADS Category 1: Negative [id number]
== END ==
PROVIDERS: PCP Student in an Organized Health Care Education/Training Program; Referring Provider Student in an Organized Health Care Education/Training Program; Visit Provider Student in an Organized Health Care Education/Training Program
DX: Z12.31 Encounter for screening mammogram for malignant neoplasm of breast (principal)
CPT/HCPCS: 77063; 77067

== ENCOUNTER → 2022-05-09 14:19 | Outpatient (CLI) | payer MEDICARE, MEDICAID, SELFPAY ==
[2021-01-19 17:36] VITALS: BMI 21.6
[2022-05-11 10:09] LABS: Fecal Immunochemical Test Negative (Negative)
== END ==
PROVIDERS: PCP Student in an Organized Health Care Education/Training Program; Referring Provider Student in an Organized Health Care Education/Training Program; Visit Provider Student in an Organized Health Care Education/Training Program
DX: Z12.11 Encounter for screening for malignant neoplasm of colon (principal)
CPT/HCPCS: 82274

== ENCOUNTER → 2022-05-12 15:05 | Outpatient (CLI) | payer MEDICARE, MEDICAID, SELFPAY ==
[2021-01-19 17:36] VITALS: BMI 21.6
--- NOTE | 2022-05-12 15:06 | DI.US.S_ITS ---
PROCEDURE: US PELVIC COMPLETE INDICATIONS: POST MENOPAUSAL BLEEDING TECHNIQUE: Real-time scanning was performed of the pelvic organs, with image documentation. Additional endovaginal scanning was necessary due to incomplete visualization of the adnexal and endometrial structures by transabdominal scanning. COMPARISON: None. FINDINGS: Uterus: Uterus is anteverted and normal in size at 5.7 x 1.9 x 3.7 cm. The myometrium is heterogenous. The endometrium measures 1.6 mm combined thickness. Ovaries: Right ovary not visualized. Left ovary measures 2.0 x 1.7 x 2.0 cm. No free fluid. Other: No pathologic free abdominal or pelvic fluid. IMPRESSION: Unremarkable ultrasound the pelvis. Nonvisualized right ovary Approved by: Marcial Cooney M.D. on 05/12/2022 at 18:37
--- NOTE | 2022-05-12 15:06 | DI.US.S_ITS ---
PROCEDURE: US ABDOMEN LIMITED INDICATIONS: RIGHT LOWER QUADRANT MASS HERNIA? TECHNIQUE: Real-time focused scanning was performed of the inguinal region, with image documentation. COMPARISON: None. FINDINGS: Right lower quadrant superficial lymph node measuring 1.8 x 1.6 x 0.8 cm. There is a preserved fatty hilum. Cortex measures 0.2 cm. This is at the palpable abnormality. IMPRESSION: Right inguinal palpable abnormality corresponds to a prominent lymph node with a short axis diameter of 0.8 cm. Dictated by: Eddie Lin M.D. on 05/12/2022 at 16:47 Approved by: Eddie Lin M.D. on 05/12/2022 at 16:49
== END ==
PROVIDERS: PCP Student in an Organized Health Care Education/Training Program; Referring Provider Student in an Organized Health Care Education/Training Program; Visit Provider Student in an Organized Health Care Education/Training Program
DX: N95.0 Postmenopausal bleeding (principal); R19.09 Other intra-abdominal and pelvic swelling, mass and lump
CPT/HCPCS: 76705; 76830; 76856; 93976